=== PATIENT | male | born 1985 | race Two or more races ===

== ENCOUNTER 2022-11-05 00:42 | Emergency (ER) | payer OTHER ==
[~2022-11-05] VITALS: Ht 175.3 cm; Wt 113.0 kg
[2022-11-05] MEDS ORDERED: FLUORESCEIN SODIUM 1 MG STRIP OS ONE (01:15)
[2022-11-05] MEDS ORDERED: PROPARACAINE HCL 0.5% 15 ML OPHTHALMIC SOLUTION OS ONE (01:15)
[2022-11-05] MEDS ORDERED: ACETAMINOPHEN 500 MG TABLET PO ONE (01:15)
[2022-11-05] MEDS ORDERED: OFLOXACIN 0.3% 5 ML OPHTHALMIC SOLUTION OS ONE (03:45)
[2022-11-05] MEDS ORDERED: PERTUSS(ACELL),DIPH,TET VAC/PF 0.5 ML SYRINGE IM. ONE (03:45)
[2022-11-05 04:05] VITALS: BP 133/72
== END 2022-11-05 05:20 | disposition home or self-care (01) ==
LOC: EMS 00:45
DX: S02.2XXA Fracture of nasal bones, initial encounter for closed fracture (principal); S05.02XA Injury of conjunctiva and corneal abrasion without foreign body, left eye, initial encounter; Z98.890 Other specified postprocedural states; Y08.89XA Assault by other specified means, initial encounter; Y93.89 Activity, other specified; Y92.89 Other specified places as the place of occurrence of the external cause; Y99.8 Other external cause status
CPT/HCPCS: 70450; 70486; 72125; 90471; 90715; 99285